=== PATIENT | male | born 1960 | race Caucasian/White ===

== ENCOUNTER → 2018-06-08 18:36 | Outpatient (CLI) | payer OTHER, SELFPAY ==
--- NOTE | 2018-06-08 18:41 | DI.RAD.S_ITS ---
PROCEDURE: XR FINGER LT MIN 2V INDICATIONS: Possible foreign body TECHNIQUE: AP hand, 2 views of the left fourth finger(s) acquired. COMPARISON: None. FINDINGS: Bones: No fractures or dislocations. No suspicious bony lesions. Soft tissues: No suspicious soft tissue calcifications. No unexpected radiopaque foreign bodies. IMPRESSION: No unexpected radiopaque foreign bodies. Dictated by: Afia Taylor M.D. on 06/08/2018 at 19:04 Approved by: Afia Taylor M.D. on 06/08/2018 at 19:05
== END ==
PROVIDERS: Visit Provider Physician Assistant
DX: L08.9 Local infection of the skin and subcutaneous tissue, unspecified (principal)
CPT/HCPCS: 73140; 87070; 87205

== ENCOUNTER → 2018-06-08 18:41 | Outpatient (CLI) | payer OTHER, SELFPAY | PROVIDERS: Visit Provider Physician Assistant | DX: R52 Pain, unspecified (principal) | CPT/HCPCS: 87070; 87075; 87205 ==